=== PATIENT | female | born 1955 | race Caucasian/White ===

== ENCOUNTER 2017-04-05 09:27 | Day surgery (SDC) | payer OTHER ==
[2017-04-05] MEDS ORDERED: LACTATED RINGERS 1,000 ML IV ONE ×2 (09:56→12:08)
[2017-04-05] MEDS ORDERED: fentaNYL 100 MCG/2 ML VIAL IVP ONE (11:27)
[2017-04-05] MEDS ORDERED: MIDAZOLAM 2 MG/2 ML VIAL IVP ONE (11:27)
[2017-04-05] MEDS ORDERED: ONDANSETRON 4 MG/2 ML VIAL ONE (12:39)
[2017-04-05 14:28] VITALS: BP 128/72
== END 2017-04-05 09:28 | disposition home or self-care (01) ==
LOC: SDS 09:27
PROVIDERS: ATTEND Surgery
PROC: 0DBN8ZX Excision of Sigmoid Colon, Via Natural or Artificial Opening Endoscopic, Diagnostic (ICD-10-PCS; principal; 2017-04-05 10:45)
DX: K63.89 Other specified diseases of intestine (principal); K64.8 Other hemorrhoids
CPT/HCPCS: 45380; J7120

== ENCOUNTER 2017-08-05 04:53 | Emergency (ER) | payer OTHER ==
[2017-08-05 05:08] VITALS: BP 139/66
--- NOTE | 2017-08-05 05:36 | ED Physician Documentation ---
History of Present Illness - Stated complaint Stated Complaint: POST OP PAIN - Chief complaint Chief Complaint: General - History obtained from History obtained from: Patient - History of Present Illness Timing: How many days ago (4-5 days) Pain level now: 8 Improved by: no ameliorating factors Worsened by: no exacerbating factors - Additonal information Additional information: c/o painful hemorrhoids for past several days. patient underwent hysterectomy and resection of tumors from colon and rectum 06/13 at [facility]. 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 08/05/17 Hydrocortisone/Pramoxine 1 applic RC TID #1 foam 08/05/17 [Proctofoam-Hc Foam] oxyCODONE [Roxicodone] 5 mg PO Q4-6H PRN #14 tablet 08/05/17 - Allergies Allergies/Adverse Reactions: Allergies Allergy/AdvReac Type Severity Reaction Status Date / Time No Known Drug Allergies Allergy Verified 08/05/17 05:11 - Social History Does the pt smoke?: No Smoking Status: Never smoker Does the pt drink ETOH?: Yes Does the pt have substance abuse?: No - Immunizations Immunizations are current?: Yes - POLST Patient has POLST: No PD ED PE NORMAL - Vitals Vital signs reviewed: Yes - General General: Alert and oriented X 3, Well developed/nourished, Other (appears to be in obvious painful distress) - Abdomen Abdomen: Soft, Non tender PD ED PE EXPANDED - Rectal Rectal: Hemorrhoid (large, firm, right-sided tender hemorrhoid), [employer] present ([employer]) Results - Vitals Vitals: Oxygen O2 Source Room air Procedures - General procedure General procedure: after prep with chlorhexadine, 1% lidocaine with epinephrine was locally injected into hemorrhoid (1-2 cc total) with excellent and rapid anesthesia. small incision made with #11 blade scalpel, amkilo. blood returned although no clot retrieved. I then applied steady, constant pressure and was able to partially reduce the hemorrhoid. she continued to have good pain relief during remainder of ED stay and was discharged with oxycodone rx and percocet take-home , instructed to return if worse and to follow-up with her doctor next available appointment PD MEDICAL DECISION MAKING - ED course Complexity details: re-evaluated patient, considered differential, d/w patient Departure - Departure Disposition: Home, Self Care Clinical Impression: Hemorrhoid Condition: Good Instructions: ED Hemorrhoids Follow-Up: CATA METZ, [Primary Care Provider] - Prescriptions: Dibucaine 1 film TP TID PRN #1 oint...g. PRN Reason: Pain Hydrocortisone/Pramoxine [Proctofoam-Hc Foam] 1 applic RC TID #1 foam oxyCODONE [Roxicodone] 5 mg PO Q4-6H PRN #14 tablet PRN Reason: Pain Discharge Date/Time: 08/05/17 06:45
[2017-08-05] MEDS ORDERED: BUFFERED LIDOCAINE 10 ML SYRINGE SUBQ STA (05:45)
[2017-08-05] MEDS ORDERED: LIDOCAINE 1%-EPI 1:100000 20 ML MDV SUBQ STA (05:51)
[2017-08-05] MEDS ORDERED: LIDOCAINE 1%-EPI 1:100000 30 ML MDV ONE (06:02)
[2017-08-05] MEDS ORDERED: oxyCODONE/ACET 5/325 Prepack 4 PO STA (06:24)
== END 2017-08-05 06:45 | disposition home or self-care (01) ==
LOC: ED 04:53
DX: K64.9 Unspecified hemorrhoids (principal); G89.18 Other acute postprocedural pain; I10 Essential (primary) hypertension; K21.9 Gastro-esophageal reflux disease without esophagitis; Z98.84 Bariatric surgery status
CPT/HCPCS: 46083; 99283

== ENCOUNTER 2017-08-10 06:09 | Day surgery (SDC) | payer OTHER ==
[2017-08-10] MEDS ORDERED: LACTATED RINGERS 1,000 ML IV ONE (06:59)
[2017-08-10] MEDS ORDERED: BUPIVACAINE 0.5%-EPI 1:200000 PF 10 ML VIAL ONE (07:43)
[2017-08-10] MEDS ORDERED: ROCURONIUM 50 MG/5 ML VIAL IVP ONE (08:15)
[2017-08-10] MEDS ORDERED: fentaNYL 100 MCG/2 ML VIAL IVP ONE (08:15)
[2017-08-10] MEDS ORDERED: PROPOFOL 200 MG/20 ML VIAL IVP ONE (08:15)
[2017-08-10] MEDS ORDERED: SUCCINYLCHOLINE 200 MG/10 ML VIAL IVP ONE (08:15)
[2017-08-10] MEDS ORDERED: ePHEDrine 50 MG/ML VIAL IVP ONE (08:15)
[2017-08-10] MEDS ORDERED: MIDAZOLAM 2 MG/2 ML VIAL IVP ONE (08:15)
[2017-08-10] MEDS ORDERED: LIDOCAINE-MPF 2% 5 ML VIAL IM ONE (08:15)
--- NOTE | 2017-08-10 08:32 | OPERATIVE REPORT ---
Operative Report - General Procedure Date: 08/10/17 Planned Procedure: Excisional external hemorrhoidectomy Pre-Op Diagnosis: Thrombosed external hemorrhoid Procedure Performed: Excisional external hemorrhoidectomy Post Op Diagnosis: Thrombosed external hemorrhoid - Procedure Note Primary Surgeon: Hipolito Mast MD Anesthesia Provider: Miguel Patino CRNA Anesthesia Technique: General ET tube, Local (30 mL of 1/2% marcaine with epinephrine) IV Fluids (mL): 200 Estimated Blood Loss (mL): 1 Complications: None. - Other Other Information/Narrative: OPERATIVE DESCRIPTION/REPORT: After verbal and written informed consent was obtained detailing the risks of infection, bleeding requiring transfusion with its risks, transient incontinence , nerve injury, and , and after I met with the patient confirming the surgery and the site of the surgery, the patient was brought to the operative suite and placed supine on the operating table. Great care was taken to avoid pressure points to prevent pressure necrosis or nerve injury. Monitoring devices were applied along with TEDs and pneumatic compressive stockings (to prevent DVT). The patient received preoperative antibiotics for surgical prophylaxis. Miguel Patino sedated and anesthetized the patient for the entire procedure. The patient was then placed prone taking care to pad all extremities and avoid any pressure spots. The patient was prepped and draped in the usual sterile manner. A "time in" then confirmed that the patient was identified with 3 identifiers (name, date and medical record number), the history and physical was in the chart, the signed consent confirming the procedure was in the chart, the patient was in the correct position, the aforementioned prophylactic measures were in place or given, we had the correct personnel and equipment to complete the procedure and that anesthesia, surgery and nursing were given an opportunity to express any concerns. With the agreement of everyone in the room, we proceeded with the operation. It was clear that the hemorrhoidal complex on the patient's right from approximately 1:00 to 5:00 was the symptomatic complex. The skin was discolored blue and was firm. Using serial application of the harmonic scalpel the hemorrhoidal complex was excised unroofing the thrombosis. There were several areas of smaller thrombosis within this and these were similarly unroofed. The clots were all removed. There was essentially no bleeding. The base of the hemorrhoid excision and around the hemorrhoid excision was injected using half percent Marcaine with epinephrine for long-term pain control. At this point a time out was performed that confirmed that all the counts were correct, the procedure that was performed, the blood loss, the IV fluids administered, and the patients condition. All surgical counts were reported as correct. A dressing was applied. Having tolerated the procedure well, the patient was subsequently taken to short stay in good and stable condition.
[2017-08-10] MEDS ORDERED: ONDANSETRON 4 MG/2 ML VIAL ONE (08:54)
[2017-08-10 10:09] VITALS: BP 126/66
== END 2017-08-10 06:10 | disposition home or self-care (01) ==
LOC: SDS 06:09
PROVIDERS: ATTEND Surgery
PROC: 06BY0ZC Excision of Hemorrhoidal Plexus, Open Approach (ICD-10-PCS; principal; 2017-08-10 07:30)
DX: K64.5 Perianal venous thrombosis (principal); F32.9 Major depressive disorder, single episode, unspecified
CPT/HCPCS: 46320; J0330; J7120; 88304

== ENCOUNTER 2019-03-18 08:55 | Outpatient (CLI) | payer MEDICARE, OTHER ==
--- NOTE | 2019-03-18 10:19 | Mammography Report ---
Reason: ROUTINE MAMMO Procedure Date: 03/18/2019 Accession Number: [id number] / [id number] Procedure: MGN - Screening Mammo Dig Bilat CPT Code: Final Report FULL RESULT: EXAM: Screening Mammo Dig Bilat DATE: 03/18/2019 10:01 AM CLINICAL HISTORY: The patient is an asymmetric 64-year-old female with no personal or family history of breast cancer. TECHNIQUE: (B) - Bilateral CC and MLO views were obtained. COMPARISON: 07/28/2015, 09/08/2009 PARENCHYMAL PATTERN: (A) - The breasts demonstrate scattered fibroglandular densities bilaterally. FINDINGS: Scattered bilateral dermal calcifications again noted. The pattern of asymmetry is stable given positional differences. There are no suspicious masses, calcifications, or areas of distortion. IMPRESSION: Benign findings. BI-RADS category 2. RECOMMENDATION: (ANNUAL) - Recommend routine annual screening mammography. BI-RADS CATEGORY: (2) - Benign Findings. STANDARD QUALIFYING STATEMENTS: 1. This examination was not reviewed with the aid of Computer-Aided Detection (CAD). 2. A negative or benign imaging report should not preclude biopsy if clinically suspicious findings are present. 3. Dense breasts may obscure an underlying neoplasm. 4. This examination was reviewed the aid of 3D breast imaging (tomosynthesis).
== END 2019-03-18 08:56 | disposition home or self-care (01) ==
LOC: DI.N 08:55
PROVIDERS: ATTEND Family Medicine
DX: Z12.31 Encounter for screening mammogram for malignant neoplasm of breast (principal)
CPT/HCPCS: 77067

== ENCOUNTER 2019-12-08 08:00 | Outpatient (CLI) | payer MEDICARE, OTHER | END 2019-12-08 23:59 | disposition home or self-care (01) | LOC: LAB.R 08:00 | PROVIDERS: ATTEND Physician Assistant | DX: Z20.828 Contact with and (suspected) exposure to other viral communicable diseases (principal); B97.89 Other viral agents as the cause of diseases classified elsewhere | CPT/HCPCS: 87275; 87276; U0004 ==

== ENCOUNTER 2019-12-11 08:00 | Outpatient (CLI) | payer MEDICARE, OTHER | END 2019-12-11 23:59 | disposition home or self-care (01) | LOC: LAB.R 08:00 | PROVIDERS: ATTEND Family Medicine | DX: R30.0 Dysuria (principal) | CPT/HCPCS: 87086; 87181 ==

== ENCOUNTER 2019-12-11 11:21 | Outpatient (CLI) | payer MEDICARE, OTHER ==
--- NOTE | 2019-12-11 11:23 | XRAY Report ---
PROCEDURE: Chest 2 View X-Ray INDICATIONS: COUGH TECHNIQUE: 2 view(s) of the chest. COMPARISON: None. FINDINGS: Surgical changes and devices: None. Lungs and pleura: No pleural effusions or pneumothorax. Lungs are clear. Mediastinum: Mediastinal contours are normal. Heart size is normal. Bones and chest wall: No suspicious bony abnormalities. Soft tissues appear unremarkable. IMPRESSION: No acute cardiopulmonary pathology. Reviewed by: Caes Larsen MD on 12/11/2019 11:22 AM PDT Approved by: Case Larsen MD on 12/11/2019 11:22 AM PDT Station ID: [id number]
== END 2019-12-11 23:59 | disposition home or self-care (01) ==
LOC: DI.WCP 11:21
PROVIDERS: ATTEND Family Medicine
DX: R05 Cough (principal); R30.0 Dysuria
CPT/HCPCS: 71046; 87086; 87181

== ENCOUNTER 2020-07-31 08:44 | Outpatient (CLI) | payer MEDICARE, OTHER ==
[2020-07-31] MEDS ORDERED: IOPAMIDOL-300 100 ML VIAL ONE (08:49)
[2020-07-31] MEDS ORDERED: IOPAMIDOL-300 50 ML VIAL ONE (08:49)
[2020-07-31 09:14] LABS: CREATININE 0.7 mg/dL (0.4-1.0)
[2020-07-31] MEDS ORDERED: IOPAMIDOL-300 100 ML VIAL IVP ONE (10:17)
[2020-07-31] MEDS ORDERED: IOPAMIDOL-300 50 ML VIAL PO ONE (10:18)
--- NOTE | 2020-07-31 10:57 | CT Report ---
PROCEDURE: Abdomen/Pelvis W INDICATIONS: HERNIA CONTRAST: IV CONTRAST: Isovue 300 ml: 100 PO CONTRAST: Isovue 300 ml50 TECHNIQUE: After the administration of oral and nonionic IV contrast, 5 mm thick sections acquired from the diap hragms to the symphysis. 5 mm thick coronal and sagittal reformats were acquired. For radiation dos e reduction, the following was used: automated exposure control, adjustment of mA and/or kV accordin g to patient size. COMPARISON: 11/26/2017, 03-09, 01/06/2016 FINDINGS: Image quality: Excellent. ABDOMEN: Lung bases: Note is made of subpleural bleb formation. Heart size is normal. A small hiatal hernia i s incidentally noted. Solid organs: Liver and spleen are normal in size and enhancement. Diffuse fatty liver infiltration can be seen. Gallbladder has been removed Biliary system is non dilated. Pancreas enhances normal ly. No adrenal nodules. Kidneys demonstrate normal size and enhancement, without hydronephrosis. Peritoneum and bowel: A lap band can be seen. Partial right hemicolectomy change can be seen. Bowel l oops demonstrate normal wall thickness and caliber. No free fluid or air. There is a 4 mm right low er quadrant soft tissue nodule seen, as on series 3 image 31, which is decreased in size compared to 2018. Nodes and vessels: No retroperitoneal or mesenteric adenopathy by size criteria. Aorta and inferior vena cava are normal in size. Miscellaneous: There is a fat-containing epigastric hernia present. PELVIS: Genitourinary: Bladder wall thickness is normal. This patient is status post hysterectomy. No adnex al masses can be seen. Miscellaneous: No inguinal hernias or adenopathy. Bones: No suspicious bony lesions. No vertebral body compression fractures. Focal L5-S1 degenerati ve change is seen. Milder degenerative changes are seen elsewhere. IMPRESSION: There is a fat-containing epigastric hernia seen. There is a 4 mm right lower quadrant nodule seen, which is decreased in size compared to 2018. Prior postoperative change, with right partial hemicolectomy. Incidental note is made of: Subpleural bleb formation Small hiatal hernia Lap band Cholecystectomy clips Fatty liver infiltration Hysterectomy Focal L5-S1 degenerative change Reviewed by: Alessandro Nur MD on 07/31/2020 9:56 AM AKDT Approved by: Alessandro Nur MD on 07/31/2020 9:56 AM DONELL Station ID: [id number]
== END 2020-07-31 08:45 | disposition home or self-care (01) ==
LOC: LAB 08:44
PROVIDERS: ATTEND Surgery
DX: K43.2 Incisional hernia without obstruction or gangrene (principal); R19.03 Right lower quadrant abdominal swelling, mass and lump
CPT/HCPCS: 36415; 74177; 82565; Q9967

== ENCOUNTER 2020-10-29 07:55 | Inpatient (IN) | payer MEDICARE, OTHER ==
[~2020-10-29 07:55] MED LIST: ceFAZolin 2 GM/50 ML 2 GM/50 ML BAG IV ONE
[2020-10-29] MEDS ORDERED: BUPIVACAINE 0.5%-EPI 1:200000 PF 30 ML VIAL ONE (08:10)
[2020-10-29] MEDS ORDERED: LIDOCAINE-MPF 1% 30 ML VIAL ONE (08:10)
--- NOTE | 2020-10-29 08:31 | ANESTHESIA ---
Pre-Anesthesia VS, & Labs - Diagnosis incisional hernia, lap band - Procedure incisional hernia repair, removal of gastric lap band and accessories Height: 5 ft 5.5 in Weight (kg): 99 kg Body Mass Index: 35.7 BMI Classification: Obese - NPO >8 hours - Is Patient ?: No Home Medications and Allergies Home Medications: Ambulatory Orders Octreotide Acetate 100 mcg IJ ONCE 10/21/20 Octreotide Acetate 100 mcg IJ ONCE 10/21/20 Allergies/Adverse Reactions: Allergies Allergy/AdvReac Type Severity Reaction Status Date / Time metformin [From Glucophage] AdvReac Nausea Verified 05/18/20 10:10 Anes History & Medical History - Anesthetic History Anesthesia Complications: reports: Difficult airway (patient was told she was for hysterectomy, does not recall intubation) - Medical History Cardiovascular: reports: None Pulmonary: reports: None Gastrointestinal: reports: Chronic diarrhea Urinary: reports: None Musculoskeletal: reports: None Endocrine/Autoimmune: reports: Other (Carcinoid tumor) Blood Disorders: reports: None Skin: reports: Eczema Smoking Status: Never smoker History of Cancer?: Yes - Surgical History General: reports: Bowel surgery, Gastric surgery, Colonoscopy, Other Eyes Ears Nose Throat (EENT): reports: Tonsil/Adenoidectomy Gynecologic: reports: Tubal ligation, Hysterectomy, Oophrectomy Orthopedic: reports: Other Exam General: Alert Dental: WNL Mouth Openin Fingerbreadth Mallampati classification: II Thyromental Distance: 4-6 cm Respiratory: Lungs clear Cardiovascular: Regular rate Plan Anesthesia Type: General Consent for Procedure(s) Verified and Reviewed: Yes Code Status: Attempt Resuscitation ASA classification: 2-Mild systemic disease Is this case an emergency?: No
[2020-10-29] MEDS ORDERED: fentaNYL 100 MCG/2 ML VIAL ONE ×2 (08:39→10:17)
[2020-10-29] MEDS ORDERED: LIDOCAINE-MPF 2% 5 ML VIAL ONE (08:39)
[2020-10-29] MEDS ORDERED: PROPOFOL 200 MG/20 ML VIAL IVP ONE ×4 (08:39→12:50)
[2020-10-29] MEDS ORDERED: MIDAZOLAM 2 MG/2 ML VIAL ONE (08:39)
[2020-10-29] MEDS ORDERED: ROCURONIUM 50 MG/5 ML VIAL ONE ×3 (08:40→10:16)
[2020-10-29] MEDS ORDERED: LACTATED RINGERS 1,000 ML IV ONE ×2 (08:44→13:39)
[2020-10-29] MEDS ORDERED: ATROPINE ABBOJECT 1 MG/10 ML SYRINGE IVP PRN (08:56)
[2020-10-29] MEDS ORDERED: ePHEDrine 50 MG/ML VIAL IVP PRN (08:56)
[2020-10-29] MEDS ORDERED: MORPHINE 2 MG/ML CARPUJECT IVP PRN (08:56)
[2020-10-29] MEDS ORDERED: NALOXONE 0.4 MG/ML VIAL IVP PRN (08:56)
[2020-10-29] MEDS ORDERED: METOCLOPRAMIDE 10 MG/2 ML VIAL IVP PRN (08:56)
[2020-10-29] MEDS ORDERED: ONDANSETRON 4 MG/2 ML VIAL IVP PRN ×2 (08:56→13:38)
[2020-10-29] MEDS ORDERED: fentaNYL 100 MCG/2 ML VIAL IVP PRN (08:56)
[2020-10-29] MEDS ORDERED: LACTATED RINGERS 1,000 ML IV SCH (09:00)
[2020-10-29] MEDS ORDERED: ROPIVACAINE 0.5% PF 20 ML AMPULE ONE (09:25)
[2020-10-29] MEDS ORDERED: GLYCOPYRROLATE 1 MG/5 ML VIAL ONE (09:34)
[2020-10-29] MEDS ORDERED: ePHEDrine 50 MG/ML VIAL IVP ONE (09:37)
[2020-10-29] MEDS ORDERED: PHENYLEPHRINE 10 MG/ML VIAL ONE (09:39)
[2020-10-29] MEDS ORDERED: DEXAMETHASONE 4 MG/ML VIAL ONE (09:54)
[2020-10-29] MEDS ORDERED: ONDANSETRON 4 MG/2 ML VIAL ONE ×2 (09:54→14:23)
[2020-10-29] MEDS ORDERED: ACETAMINOPHEN 1,000 MG/100 ML 100 ML IV ONE (09:55)
[2020-10-29] MEDS ORDERED: BUPIVACAINE 0.5% PF 30 ML VIAL SUBQ ONE ×2 (10:26)
[2020-10-29] MEDS ORDERED: LIDOCAINE 1%-EPI 1:100000 20 ML MDV SUBQ ONE ×2 (10:28)
[2020-10-29] MEDS ORDERED: NEOSTIGMINE 1 MG/1 ML 10 ML MDV ONE (11:46)
[2020-10-29] MEDS ORDERED: SUGAMMADEX 200 MG/2 ML VIAL IVP ONE (12:01)
[2020-10-29] MEDS ORDERED: ceFAZolin 1 GM VIAL ONE (13:03)
--- NOTE | 2020-10-29 13:53 | OPERATIVE REPORT ---
Operative Report - General Admit Date: 10/30/20 Procedure Date: 10/29/20 Planned Procedure: 1. Diagnostic laparoscopy 2. Laparoscopic adhesiolysis 3. Laparoscopic assisted laparoscopic gastric band explantation 4. Complex laparoscopic assisted ventral hernia repair 5. Scar revision 6. Transversus abdominis plane block Pre-Op Diagnosis: Hx of laparotomy; Hx of incisional hernia; Hx of lap gastric band Procedure Performed: 1. Diagnostic laparoscopy 2. Laparoscopic adhesiolysis, extensive 3. Laparoscopic assisted laparoscopic gastric band explantation 4. Complex laparoscopic assisted ventral hernia repair 5. Scar revision 6. Transversus abdominis plane block 7. Extensive open adhesiolysis through mini laparotomy 8. Intraperitoneal onlay mesh 9. Cautery of hepatic adhesions Post Op Diagnosis: SAME; extensive adhesions (Hx of HIPEC); extensive gastric adhesions - Procedure Note Primary Surgeon: Len Secondary Surgeon: ADELINA Anesthesia Provider: Tyshawn Anesthesia Technique: General ET tube, Regional block Pathology: 1. Laparoscopic gastric band complete including access port 2. Gastric band capsule 3. Scar status post revision 4. Port capsule Estimated Blood Loss (mL): 50 Drain/Tube Type: Jacques drain Indications: See EMR Findings: See Dictation Complications: NONE - Other Other Information/Narrative: PROCEDURES PERFORMED: 1. Diagnostic laparoscopy 2. Laparoscopic adhesiolysis, extensive 3. Laparoscopic assisted laparoscopic gastric band explantation 4. Complex laparoscopic assisted ventral hernia repair 5. Scar revision 6. Transversus abdominis plane block 7. Extensive open adhesiolysis through mini laparotomy 8. Intraperitoneal onlay mesh 9. Cautery of hepatic adhesions Findings: 1. Dense Adhesions. Large incisional hernia. Good apposition of mesh. 2. Large incisional herniaperformed for primary repair after dissection and IPOM performed using echo ventral light ST implant 3. No inadvertent injury, hemostatic, ultimately successful repair 4. Trochars were as follows: A. Left upper quadrant at the patient's historic lap band port site B. Right upper abdominal trocar 5 mm D. Left lower quadrant 5 mm E. Right lower quadrant 5 mm 5. Successful explantation of the patient's laparoscopic gastric band in spite of extensive planned abdominal, pain intestinal, and foregut adhesions especially to the patient's left lobe of the liver. Procedure Report: Patient was taken to the operating room placed supine on the operating table. Informed consent was already obtained. Patient was induced for general endotracheal anesthesia. Patient at this time was placed for Ocampo catheter. Patient was offloaded and padded. Arms were tucked bilaterally. Patient was prepped and draped in the usual sterile fashion. Timeout was called and agreed to by all in the room. A planned access point was incised along the patient's historic midline supraumbilical scar. Planned scar revision was also anticipated and we performed excision of the scar during this portion of the operative intervention. After passing this scar off for permanent pathology, we proceeded to take down the subcutaneous fat cautiously with electrocautery. Once we approached the hernia sac we proceeded exclusively with sharp dissection to avoid any inadvertent hollow viscus injury in this patient with known large supraumbilical ventral hernia. The patient had had metastatic carcinoid for which she underwent debulking procedure as well as heated intraperitoneal chemotherapy (AKA HIPEC). It was anticipated that the patient would have extensive adhesions. Moreover the patient wished to have her lap band explanted which was another intervention that would only be further complicated by her complex surgical h istory. Reached the incisional/ventral hernia and carefully divided this sharply and proceeded with adhesiolysis of the underlying contents both the omentum as well as the bowel. As we proceeded to achieve adhesiolysis we noted that this case would require lengthy adhesiolysis both open and laparoscopic and thus opted to proceed as follows: 1. Adhesiolysis to avoid appropriate access (after already performing scar excision of the supraumbilical midline scar) 2. Laparoscopic adhesiolysis to afford access to the abdomen to achieve the appropriate exposure to proceed with the next step 3. Explantation of the patient's laparoscopic gastric band 4. Complex laparoscopic assisted ventral hernia repair with primary closure 5. Other indicated procedures including transversus abdominis block To achieve the initial above listed goals, we plan to perform this using a GelPort wound protector both for exposure initially and thereafter to assist with achieving pneumoperitoneum for subsequent adhesiolysis. Once the underlying abdominal contents were freed from the anterior abdominal wall, we proceeded with mini laparotomy through this approximately 10 to 12 cm incision incorporating the patient's known midline hernia which amounted to at least 1 hour of careful tedious sharp adhesiolysis using Metzenbaum scissors, gentle countertraction, to address all local anterior abdominal wall adhesions as well as accessible interloop adhesions. We thereafter able to press forward laparoscopically and placed the GelPort access device towards inserting the subsequent trochars for the balance of the patient's adhesiolysis and the subsequent portions of the patient's operative intervention. Abdominal cavity was entered without incident. We placed the Rosen trocar and insufflated the abdomen to 15 mmHg with no complication. Case began with adhesiolysis as follows: Trochars were sequentially placed towards affording appropriate abdominal access for laparoscopic and ultimately laparoscopic adhesiolysis and enterolysis. This was performed in such a way as to maximize exposure and minimize abdominal trauma. We clearly visualized, after appropriate and lengthy laparoscopic adhesiolysis, each trocar placement. Thereafter once appropriate and safe exposure was achieved without any inadvertent injuries or other complicating factors, we proceeded laparoscopically in such a way as to take down the patient's extensive intra- abdominal adhesions using sharp laparoscopic dissection, diligent electrocautery, and appropriate countertraction. Please note for multiple reasons as listed above under brief procedural findings, this patient was best suited to minimal access adhesiolysis towards avoiding open intervention, reducing the associated risks thereof, maximizing recovery, minimizing postoperative morbidity and associated stigmata, and enhancing the patient's convalescence towards assuring safe and expeditious ushering of patient into the next step of therapeutic intervention which was crucial in overall plan of care. This proceeded without any untoward complications, and without any inadvertent injuries or other adverse effect events. Trochars were as follows: A. Left upper quadrant at the patient's historic lap band port site B. Right upper abdominal trocar 5 mm D. Left lower quadrant 5 mm E. Right lower quadrant 5 mm With this having been achieved we proceeded to perform mckeon abdominal, mckeon intestinal adhesiolysis in this patient who had had again debulking for metastatic abdominal carcinoid as well as HIPEC. This laparoscopic adhesiolysis took an additional 1 hour. Ultimately we were able to expose the abdomen to the point that we could proceed with explantation of the laparoscopic gastric lap band. The patient was placed in reverse Trendelenburg with left side up. Through the above listed ports were able to carefully follow the insufflation line from the abdominal port site to the patient's laparoscopic gastric band. There were dense adhesions around this from the patient's multiple surgical interventions. This required careful diligent dissection notably sharp, cautious electrocautery, and laparoscopic LigaSure as well. There was a dense fibrous coat surrounding this in the way of a capsule this was all adjacent to the lateral aspect of the left lobe of the liver. This took an exceedingly long amount of time with cautious intervention which otherwise would have necessitated a partial "chevron" for open access which would have defeated the purpose of the patient's hernia. Thus we proceeded carefully and cautiously ultimately were able to explant the band without any complication which had already been desufflated prior to our intervention.. There was no concern for any issues in the area was submerged under saline with appropriate positioning in the stomach at this point was insufflated with air with an out any extravasation of bubbles on saline immersion. Ultimately we removed the port from the abdomen at the conclusion of this case during final closure see below. The LAP-BAND was explanted through the midline GelPort without any complication and sent along with the capsule for permanent pathology. At this time we opted to perform the complex ventral hernia repair. There was an area of persistent oozing from the adhesions to the left lobe of the liver from where the lap band and its capsule had been adhesed. This was addressed with electrocautery without any complication. Hemostatic. We proceeded to choose a large mesh ventral light ST echo system from [employer]. This would appropriately cover the entirety of the defect which would plan to close primarily as well. The mesh was thereafter placed and its traction suture clamped. To reiterate, the defect was very large greater than 10cm and was closed vertically as listed elsewhere. Prior to definitive closure and mesh was chosen from the [employer] family of products ST with Seprafilm covering/coating echo ventral light synthetic. This oval mesh was rolled and inserted into the hernia defect prior to definitive closure. Scaffold suture secured outside on a Calli clamp. We proceeded to remove the GelPort and closed the midline wound after developing skin flaps and performing a partial component separation. Fascia was identified and appropriately liberated from chronic scar. We performed this bidirectional closure with loop PDS without any complication. The abdomen was then insufflated to 15 mmHg pressure through Rosen umbilical trocar now placed in the left upper quadrant. Trocars were already placed as follows for above laparoscopic adhesiolysis: A. Left upper quadrant at the patient's historic lap band port site B. Right upper abdominal trocar 5 mm D. Left lower quadrant 5 mm E. Right lower quadrant 5 mm The mesh was straightened and flattened in the abdominal cavity up against the abdominal wall. There was good apposition after the scaffold suture was pulled taut against the anterior abdominal wall of the mesh which was organ oriented appropriately with the coding facing intra-abdominal. At this time while maintaining traction on this scaffold suture from the ECHO system we proceeded to approximate the mesh to the anterior abdominal wall. Please note we attempted to proceed with a smaller mesh over the umbilicus prophylactically infraumbilical however in spite of adhesiolysis it did not appear that we would had apposition of the mesh and the risk of complication with mesh on mesh would be prohibitive thus we proceeded with a single device to address the single area of concern. At this time we proceeded to affix the mesh using approximate absorbable tacks which was facilitated using the 4 trochars in the left and right upper and lower quadrants. This was performed sequentially through all 4 trocars in a 360- degree fashion. Several permanent tacks were also used given the large size of this device. The mesh was examined once again, and the mesh was documented by photography showing that it was clearly lying flat anteriorly against the abdominal wall. Pictures were taken of the mesh. The abdomen was then checked for hemostasis. Small bowel was run without any concern for any occult pathology especially given historic recurrent herniation. Omentum was mobilized over the bowel. The abdomen was irrigated and aspirated clear. The abdomen was desufflated. At this time we proceeded to remove the access port to the patient's historic lap band site. All sutures removed and this was sent for permanent pathology without any concern for any remnant device within the patient's abdomen. We thereafter reset elated and close this large trocar access site with a Jassi-Kam suture passer under direct laparoscopic vision. We thereafter desufflated the abdomen again and all remaining right upper and right lower quadrant trocars as well as the left lower quadrant trocar which were removed thereafter without any complication. All trocar sites were closed with subcuticular with Monocryl for local blocks with local anesthetic. We thereafter also proceeded with a cosmetic closure of the patient's supraumbilical incision with a subcuticular 4-0 Monocryl. All wounds were dressed with Dermabond. Present for the entirety of this operative intervention. Patient tolerated procedure well which was no complication. All counts for sponges, needles, and instrument were correct at the conclusion of the case. Patient was performed for a transversus abdominis plane block per anesthesia. It was anticipated that given the patient's dense adhesions and lengthy adhesiolysis she might possibly require transition to full admission for anticipated ileus. The patient was allowed to wake from anesthesia without difficulty. Please note that voice recognition software was used to transcribe this note and inadvertent errors might persist in spite of review and editing. I am obliged to you for your attention. I am thankful to you for allowing me to participate with you in this care of this patient.
--- NOTE | 2020-10-29 13:59 | PROVIDER PROGRESS NOTE ---
Progress Note BRIEF Operative Report - General Procedure Date: 10/29/20 Planned Procedure: 1. Diagnostic laparoscopy 2. Laparoscopic adhesiolysis 3. Laparoscopic assisted laparoscopic gastric band explantation 4. Complex laparoscopic assisted ventral hernia repair 5. Scar revision 6. Transversus abdominis plane block Pre-Op Diagnosis: Hx of laparotomy; Hx of incisional hernia; Hx of lap gastric band Procedure Performed: 1. Diagnostic laparoscopy 2. Laparoscopic adhesiolysis, extensive 3. Laparoscopic assisted laparoscopic gastric band explantation 4. Complex laparoscopic assisted ventral hernia repair 5. Scar revision 6. Transversus abdominis plane block 7. Extensive open adhesiolysis through mini laparotomy 8. Intraperitoneal onlay mesh 9. Cautery of hepatic adhesions Post Op Diagnosis: SAME; extensive adhesions (Hx of HIPEC); extensive gastric adhesions - Procedure Note Primary Surgeon: Len Secondary Surgeon: ADELINA Anesthesia Provider: Tyshawn Anesthesia Technique: General ET tube, Regional block Pathology: 1. Laparoscopic gastric band complete including access port 2. Gastric band capsule 3. Scar status post revision 4. Port capsule Estimated Blood Loss (mL): 50 Drain/Tube Type: Jacques drain Indications: See EMR Findings: See Dictation Complications: NONE
[2020-10-29] MEDS ORDERED: HYDROmorphone 0.5 MG/0.5 ML SYRINGE ONE (14:23)
[2020-10-29] MEDS: HYDROmorphone 0.5 MG/0.5 ML SYRINGE IVP PRN ×5 (14:25→16:26)
[2020-10-29] MEDS ORDERED: HYDROmorphone 1 MG/ML CARPUJECT ONE (14:38)
[2020-10-29] MEDS: D5NS W/20 MEQ KCL 1,000 ML IV SCH ×2 (15:23→23:07)
[2020-10-29] MEDS: PANTOPRAZOLE 40 MG TABLET PO SCH (16:22)
[2020-10-29] MEDS: KETOROLAC 30 MG/ML VIAL IVP SCH (18:06)
[2020-10-29] MEDS: methocarbamoL 500 MG TABLET PO SCH (18:06)
[2020-10-29] MEDS: METOCLOPRAMIDE 10 MG/2 ML VIAL IVP SCH (18:07)
[2020-10-29] MEDS: polyethylene glycoL 3350 17 GM PACKET PO SCH (21:47)
[2020-10-29] MEDS: DOCUSATE SODIUM 100 MG CAPSULE PO SCH (21:47)
[2020-10-30] MEDS: KETOROLAC 30 MG/ML VIAL IVP SCH ×4 (00:13→18:13)
[2020-10-30] MEDS: METOCLOPRAMIDE 10 MG/2 ML VIAL IVP SCH ×4 (00:13→18:12)
[2020-10-30] MEDS: methocarbamoL 500 MG TABLET PO SCH ×4 (00:13→18:12)
[2020-10-30] MEDS: D5NS W/20 MEQ KCL 1,000 ML IV SCH ×4 (06:06→21:23)
[2020-10-30] MEDS: PANTOPRAZOLE 40 MG TABLET PO SCH (06:12)
[2020-10-30] MEDS: DOCUSATE SODIUM 100 MG CAPSULE PO SCH ×2 (09:27→20:33)
[2020-10-30] MEDS: polyethylene glycoL 3350 17 GM PACKET PO SCH ×2 (09:27→20:33)
--- NOTE | 2020-10-30 15:19 | PROVIDER PROGRESS NOTE ---
Progress Note Subjective: Postoperative day #1 status post below listed procedure. Patient with significant pain. Ileus. No bowel function as of yet. Pre-Op Diagnosis: Hx of laparotomy; Hx of incisional hernia; Hx of lap gastric band Procedure Performed: 1. Diagnostic laparoscopy 2. Laparoscopic adhesiolysis, extensive 3. Laparoscopic assisted laparoscopic gastric band explantation 4. Complex laparoscopic assisted ventral hernia repair 5. Scar revision 6. Transversus abdominis plane block 7. Extensive open adhesiolysis through mini laparotomy 8. Intraperitoneal onlay mesh 9. Cautery of hepatic adhesions Post Op Diagnosis: SAME; extensive adhesions (Hx of HIPEC); extensive gastric adhesions Objective Afebrile hemodynamically acceptable General Appearance: positive: No acute distress Eyes Bilateral: positive: Normal inspection ENT: positive: ENT inspection nml Neck: positive: Nml inspection Respiratory: positive: Chest non-tender, No respiratory distress, Breath sounds nml. negative: Wheezes, Rales, Rhonchi Cardiovascular: positive: Regular rate & rhythm Abdomen: positive: No distention, Other. negative: Guarding, Rebound Extremities: positive: Non-tender, Full ROM, Nml appearance Neurologic/Psychiatric: positive: Oriented x3, CN's nml (2-12) Abdominal Exam: Inspection - Erythema none; Scars trocars well healed Auscultation -normoactive bowel sounds Palpation - Hernias none; Fluctuance none; Induration none; Scar N/A Dressings intact. LISSETT with serosanguineous output. Impression/Plan Postoperative day #1 status post above listed procedure. Ileus. Converted to inpatient. (1) GI - IVF, bowel regimen, advance diet as tolerated. GI ppx. Anticipate ileus. Opiate sparring analgesia. (2) SURGERY - maintain drain. Maintain abdominal binder. (3) Renal/Lytes - continue IVF. Renal indices within normal limits. (4) Respiratory - O2 as necessary. Continue IS. (5) Heme - Will continue with DVT ppx. H/H stable. (6) Cardiovascular - HD acceptable. (7) Neuro - Opiate sparring analgesia. Antispasmodics with Robaxin. Toradol. Neuropathic agents.
[2020-10-30] MEDS: oxyCODONE 5 MG TABLET PO PRN ×2 (16:01→20:33)
[2020-10-31] MEDS: methocarbamoL 500 MG TABLET PO SCH ×5 (01:01→23:42)
[2020-10-31] MEDS: oxyCODONE 5 MG TABLET PO PRN ×2 (01:43→21:32)
[2020-10-31] MEDS: METOCLOPRAMIDE 10 MG/2 ML VIAL IVP SCH (02:00)
[2020-10-31] MEDS: KETOROLAC 30 MG/ML VIAL IVP SCH ×4 (02:00→20:06)
[2020-10-31] MEDS ORDERED: ACETAMINOPHEN 1,000 MG/100 ML 100 ML IV SCH (06:00)
[2020-10-31] MEDS: D5NS W/20 MEQ KCL 1,000 ML IV SCH ×3 (06:21→21:59)
[2020-10-31 06:35] LABS: BASOPHILS % (AUTO) 0.1 %; EOSINOPHILS # (AUTO) 0.1 10^3/uL (0.0-0.7); EOSINOPHILS % (AUTO) 1.8 %; HCT - HEMATOCRIT 36.6 % (37.0-47.0); HGB - HEMOGLOBIN 11.8 g/dL (12.0-16.0); LYMPHOCYTES # (AUTO) 0.7 10^3/uL (1.5-3.5); LYMPHOCYTES % (AUTO) 9.3 %; MEAN CORPUSCULAR HEMOGLOBIN 32.2 pg (27.0-31.0); MEAN CORPUSCULAR HGB CONC 32.2 g/dL (32.0-36.0); MEAN CORPUSCULAR VOLUME 99.7 fL (81.0-99.0); MEAN PLATELET VOLUME 9.9 fL (7.9-10.8); MONOCYTES # (AUTO) 0.3 10^3/uL (0.0-1.0); MONOCYTES % (AUTO) 4.8 %; NEUTROPHILS % (AUTO) 83.7 %; PLT - PLATELET COUNT 120 10^3/uL (130-450); RED BLOOD COUNT 3.67 10^6/uL (4.20-5.40); RED CELL DISTRIBUTION WIDTH 13.8 % (12.0-15.0); WHITE BLOOD COUNT 7.1 x10^3/uL (4.8-10.8)
[2020-10-31] MEDS: PANTOPRAZOLE 40 MG TABLET PO SCH (06:43)
[2020-10-31 06:51] LABS: ALBUMIN 3.8 g/dL (3.2-5.5); ALBUMIN/GLOBULIN RATIO 1.5 (1.0-2.2); BILIRUBIN,TOTAL 1.9 mg/dL (0.2-1.0); CALCIUM 8.4 mg/dL (8.5-10.3); CREATININE 0.7 mg/dL (0.4-1.0); POTASSIUM 3.8 mmol/L (3.5-5.0); TOTAL PROTEIN 6.3 g/dL (6.7-8.2)
[2020-10-31] MEDS ORDERED: METOCLOPRAMIDE 10 MG/2 ML VIAL IVP SCH (08:00)
--- NOTE | 2020-10-31 08:47 | PHARMACY PROGRESS NOTE ---
- Best Possible Medication History Admit Date and Time: 10/30/20 1518 Processed by: Nursing Medication History completed: Yes Patient Interview: Completed As the person ultimately responsible for medication therapy, providers are able to order a medication from an existing home medication list in [facility] via the "Reconcile Routine" prior to Confirmation of that medication by computer support specialist instructor. Such practice is discouraged except when the physician, in their clinical judg ment, deems that a medical need exists for a medication without regard to previous use.
--- NOTE | 2020-10-31 09:39 | ANESTHESIA POST OP EVALUATION ---
Anesthesia Post Eval - Post Anesthesia Eval Vitals: Last Vital Signs Temp 37 C 10/31/20 04:56 Pulse 77 10/31/20 04:56 Resp 16 10/31/20 04:56 BP 143/63 H 10/31/20 04:56 Pulse Ox 94 10/31/20 04:56 CV Function Including HR & BP: Stable Pain Control: Satisfactory Nausea & Vomiting: Negative Mental Status: Baseline Respiratory Status: Airway Patent Hydration Status: Satisfactory Anesthesia Complications: None
[2020-10-31] MEDS: DOCUSATE SODIUM 100 MG CAPSULE PO SCH ×2 (10:36→20:07)
[2020-10-31] MEDS: HEPARIN 5,000 UNIT/ML VIAL SUBQ SCH ×2 (10:37→21:33)
[2020-10-31] MEDS: METOCLOPRAMIDE 10 MG TABLET PO SCH ×3 (10:41→23:42)
[2020-10-31] MEDS: polyethylene glycoL 3350 17 GM PACKET PO SCH ×2 (10:42→20:07)
[2020-10-31] MEDS: ACETAMINOPHEN 500 MG TABLET PO SCH ×2 (13:01→20:06)
[2020-11-01] MEDS: KETOROLAC 30 MG/ML VIAL IVP SCH ×3 (02:05→14:11)
[2020-11-01] MEDS: ACETAMINOPHEN 500 MG TABLET PO SCH ×2 (02:59→09:54)
[2020-11-01] MEDS: PANTOPRAZOLE 40 MG TABLET PO SCH (05:31)
[2020-11-01] MEDS: METOCLOPRAMIDE 10 MG TABLET PO SCH ×2 (05:31→12:15)
[2020-11-01] MEDS: methocarbamoL 500 MG TABLET PO SCH ×2 (05:31→12:15)
[2020-11-01] MEDS: D5NS W/20 MEQ KCL 1,000 ML IV SCH (05:32)
[2020-11-01 07:09] LABS: ALBUMIN 3.6 g/dL (3.2-5.5); ALBUMIN/GLOBULIN RATIO 1.4 (1.0-2.2); BILIRUBIN,TOTAL 1.5 mg/dL (0.2-1.0); CALCIUM 8.5 mg/dL (8.5-10.3); CREATININE 0.6 mg/dL (0.4-1.0); POTASSIUM 3.6 mmol/L (3.5-5.0); TOTAL PROTEIN 6.1 g/dL (6.7-8.2)
[2020-11-01 07:22] LABS: BASOPHILS % (AUTO) 0.3 %; EOSINOPHILS # (AUTO) 0.2 10^3/uL (0.0-0.7); EOSINOPHILS % (AUTO) 3.9 %; HCT - HEMATOCRIT 36.6 % (37.0-47.0); HGB - HEMOGLOBIN 11.9 g/dL (12.0-16.0); LYMPHOCYTES # (AUTO) 0.5 10^3/uL (1.5-3.5); LYMPHOCYTES % (AUTO) 13.9 %; MEAN CORPUSCULAR HEMOGLOBIN 32.2 pg (27.0-31.0); MEAN CORPUSCULAR HGB CONC 32.5 g/dL (32.0-36.0); MEAN CORPUSCULAR VOLUME 99.2 fL (81.0-99.0); MEAN PLATELET VOLUME 9.8 fL (7.9-10.8); MONOCYTES # (AUTO) 0.3 10^3/uL (0.0-1.0); MONOCYTES % (AUTO) 8.1 %; NEUTROPHILS # (AUTO) 2.8 10^3/uL (1.5-6.6); NEUTROPHILS % (AUTO) 73.3 %; PLT - PLATELET COUNT 105 10^3/uL (130-450); RED BLOOD COUNT 3.69 10^6/uL (4.20-5.40); RED CELL DISTRIBUTION WIDTH 13.3 % (12.0-15.0); WHITE BLOOD COUNT 3.8 x10^3/uL (4.8-10.8)
[2020-11-01] MEDS: polyethylene glycoL 3350 17 GM PACKET PO SCH (09:48)
[2020-11-01] MEDS: DOCUSATE SODIUM 100 MG CAPSULE PO SCH (09:48)
[2020-11-01] MEDS: HEPARIN 5,000 UNIT/ML VIAL SUBQ SCH (09:49)
--- NOTE | 2020-11-01 11:45 | PROVIDER PROGRESS NOTE ---
Progress Note Subjective: Postoperative day #2 status post below listed procedure. Patient with significant pain. Ileus. No bowel function as of yet. Pre-Op Diagnosis: Hx of laparotomy; Hx of incisional hernia; Hx of lap gastric band Procedure Performed: 1. Diagnostic laparoscopy 2. Laparoscopic adhesiolysis, extensive 3. Laparoscopic assisted laparoscopic gastric band explantation 4. Complex laparoscopic assisted ventral hernia repair 5. Scar revision 6. Transversus abdominis plane block 7. Extensive open adhesiolysis through mini laparotomy 8. Intraperitoneal onlay mesh 9. Cautery of hepatic adhesions Post Op Diagnosis: SAME; extensive adhesions (Hx of HIPEC); extensive gastric adhesions Objective Afebrile hemodynamically acceptable General Appearance: positive: No acute distress Eyes Bilateral: positive: Normal inspection ENT: positive: ENT inspection nml Neck: positive: Nml inspection Respiratory: positive: Chest non-tender, No respiratory distress, Breath sounds nml. negative: Wheezes, Rales, Rhonchi Cardiovascular: positive: Regular rate & rhythm Abdomen: positive: No distention, Other. negative: Guarding, Rebound Extremities: positive: Non-tender, Full ROM, Nml appearance Neurologic/Psychiatric: positive: Oriented x3, CN's nml (2-12) Abdominal Exam: Inspection - Erythema none; Scars trocars well healed Auscultation -normoactive bowel sounds Palpation - Hernias none; Fluctuance none; Induration none; Scar N/A Dressings intact. LISSETT with serosanguineous output. Impression/Plan Postoperative day #2 status post above listed procedure. Ileus. Converted to inpatient. (1) GI - IVF, bowel regimen, advance diet as tolerated. GI ppx. Anticipate ileus. Opiate sparring analgesia. (2) SURGERY - maintain drain. Maintain abdominal binder. (3) Renal/Lytes - continue IVF. Renal indices within normal limits. (4) Respiratory - O2 as necessary. Continue IS. (5) Heme - Will continue with DVT ppx. H/H stable. (6) Cardiovascular - HD acceptable. (7) Neuro - Opiate sparring analgesia. Antispasmodics with Robaxin. Toradol. Neuropathic agents.
[2020-11-01] MEDS: oxyCODONE 5 MG TABLET PO PRN (14:14)
[2020-11-01] MEDS ORDERED: ACETAMINOPHEN 500 MG TABLET PO SCH (16:00)
--- NOTE | 2020-11-01 17:29 | Discharge Plan ---
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 Stairs are allowed, no strenuous/exertional activities. 5-10lbs weight carrying limit (i.e. gallon of milk) If provided, abdominal binder while out of bed and while ambulating. Call or proceed to clinic/ER for fevers, severe pain, nausea, vomiting, i nability to pass flatus/stool, bleeding, wound redness/discharge, weakness, excessively loose stool/diarrhea, or for any other reasonably worrisome symptom or concern. Soft diet, no raw vegetables, avoid high fiber foods. Colace 100mg by mouth twice to three times daily while taking narcotic pain medication. If no bowel movement in 24-48hr, may take 17g Miralax in 8oz water twice daily until bowel movement. May shower, no submersive bathing. Follow up in clinic in 2-4 weeks for wound check and staple removal. No driving while taking narcotic pain medications. Follow up with primary care provider and/or medical subspecialist following discharge as well. Patient not allowed to drive self today or within 24 hours of surgery. Impression/Plan 1. Oxycodone every 4-6 hours as needed for pain 2. Take Colace twice daily and MiraLAX daily as per above while taking narcotics and if no bowel function 3. Avoid nonsteroidals and continue with acetaminophen 650 mg every 6 hours not to exceed 4 g daily 4. Patient to also follow-up in surgery clinic for staple removal. 5. Patient to call or return to the hospital through ER for fevers, nausea, vomiting, abdominal pain or any other worrisome symptoms or concerns. 6. Patient not to return to any work capacity until seen in clinic. Discharge with Jacques drain in place please educate on management. Record output daily. No Smoking: If you smoke, Please STOP! Call for help. Follow-up with: Darion Rivera DO [Primary Care Provider] - Tam Harrington MD [Provider Admit Priv/Credential] - 1-2 Days (Follow up for drain removal on )
--- NOTE | 2020-11-01 17:29 | DISCHARGE SUMMARY ---
"Discharge Summary Admit Date: 10/29/20 Discharge Date: 11/01/20 Primary Care Provider: Len Code Status: Attempt Resuscitation Condition at Discharge: Good Discharge Disposition: 01 Home, Self Care - DIAGNOSES Admission Diagnoses: 1. Obesity 2. History of multiple abdominal interventions 3. History of metastatic carcinoid 4. History of laparoscopic gastric band 5. Symptomatic large incisional supraumbilical hernia 6. Medical comorbid states Discharge Diagnoses with Status of Each Condition: 1. Obesity - Stable 2. History of multiple abdominal interventions - Stable/Addressed 3. History of metastatic carcinoid - No gross evidence of recurrence 4. History of laparoscopic gastric band - Removed this admission 5. Symptomatic large incisional supraumbilical hernia - Repaired this admission 6. Medical comorbid states - STABLE 7. Postoperative ileus - RESOLVED 8. Status post complex laparoscopic intervention - TOLERATED/COMPLETED 9. Postoperative pain - RESOLVED 10. Dense abdominal adhesions - ADDRESSED 11 - Electrolyte abnormalities addressed - HPI History of Present Illness: Please see EMR. 65-year-old female with history of metastatic carcinoid and remote laparoscopic gastric band who presents for midline incisional hernia, explantation of laparoscopic band, and hernia repair. She has undergone laparotomy with debulking as well as HIPEC. She underwent cardiology preoperative work-up and clearance. She presents today for elective repair and lap gastric band/port explantation. - CONSULTS | PROCEDURES Consultations: NONE Procedures: Pre-Op Diagnosis: Hx of laparotomy; Hx of incisional hernia; Hx of lap gastric band Procedure Performed: 1. Diagnostic laparoscopy 2. Laparoscopic adhesiolysis, extensive 3. Laparoscopic assisted laparoscopic gastric band explantation 4. Complex laparoscopic assisted ventral hernia repair 5. Scar revision 6. Transversus abdominis plane block 7. Extensive open adhesiolysis through mini laparotomy 8. Intraperitoneal onlay mesh 9. Cautery of hepatic adhesions Post Op Diagnosis: SAME; extensive adhesions (Hx of HIPEC); extensive gastric adhesions Patient underwent above listed procedure without any complication. Patient underwent operative intervention as listed in the electronic medical record. Tolerated procedure well for which there was no complication. Patient suffered ileus for which resumption of bowel function was necessary. Modification of pain management was indicated. Electrolytes were replaced. It was not surprising that the patient developed ileus secondary to the extent and degree of adhesiolysis Postoperatively the patient was managed for postoperative analgesia and resumption of bowel function. Patient had successfully passed trial of void with discontinuation of [place]. Ultimately tolerated oral intake without any complication. Denied nausea denied vomiting. Was advanced for diet without any complication. Was counseled that given evidence of umbilical hernia which was repaired at the time of the patient's operative intervention that she should avoid any heavy lifting pushing or pulling. Patient was maintained on a bowel regimen. Patient was tolerating oral analgesia, p.o. nutrition with soft diet, voiding spontaneously, with Delayed resumption of bowel function. Afebrile hemod ynamically acceptable. Electrolytes repleted throughout and blood counts as a relates to risks of anemia in the perioperative setting and leukocytosis as an inflammatory marker were all stable without any concerns. Discharge instructions given. Analgesia with oxycodone provided at time of discharge. Patient plan for follow-up and will be notified of pathology once returned. Patient was discharged with drain care and would present to clinic next week to have it removed. - HOSPITAL COURSE Hospital Course: Pre-Op Diagnosis: Hx of laparotomy; Hx of incisional hernia; Hx of lap gastric band Procedure Performed: 1. Diagnostic laparoscopy 2. Laparoscopic adhesiolysis, extensive 3. Laparoscopic assisted laparoscopic gastric band explantation 4. Complex laparoscopic assisted ventral hernia repair 5. Scar revision 6. Transversus abdominis plane block 7. Extensive open adhesiolysis through mini laparotomy 8. Intraperitoneal onlay mesh 9. Cautery of hepatic adhesions Post Op Diagnosis: SAME; extensive adhesions (Hx of HIPEC); extensive gastric adhesions - ALLERGIES Allergies/Adverse Reactions: Allergies Allergy/AdvReac Type Severity Reaction Status Date / Time metformin [From Glucophage] AdvReac Nausea Verified 05/18/20 10:10 - MEDICATIONS Home Medications: Ambulatory Orders Medication Instructions Recorded Confirmed Octreotide Acetate 100 mcg IJ ONCE 10/21/20 10/29/20 Acetaminophen [Tylenol] 1,000 mg PO Q6H tablet 11/01/20 Docusate Sodium 100Mg Capsule 100 mg PO BID 11/01/20 [Colace 100Mg Capsule] Pantoprazole [Protonix] 40 mg PO QDAC #30 tablet 11/01/20 methocarbamoL [Robaxin] 500 mg PO Q6HR PRN #50 tablet 11/01/20 oxyCODONE [Roxicodone] 5 mg PO Q4HR PRN #30 tablet 11/01/20 polyethylene glycoL 3350 [Miralax] 17 gm PO BID packet 11/01/20 - PHYSICAL EXAM AT DISCHARGE Physical Exam Other/Comments: General Appearance: positive: No acute distress Eyes Bilateral: positive: Normal inspection ENT: positive: ENT inspection nml Neck: positive: Nml inspection Respiratory: positive: Chest non-tender, No respiratory distress, Breath sounds nml. negative: Wheezes, Rales, Rhonchi Cardiovascular: positive: Regular rate & rhythm Abdomen: positive: No distention, Other. negative: Guarding, Rebound Extremities: positive: Non-tender, Full ROM, Nml appearance Neurologic/Psychiatric: positive: Oriented x3, CN's nml (2-12) Abdominal Exam: Inspection - Erythema none; Scars trocars well healed Auscultation -normoactive bowel sounds Palpation - Hernias none; Fluctuance none; Induration none; Scar N/A All Dermabond intact over incisions which were clean dry - LABS Result Diagrams: 11/01/20 06:52 11/01/20 06:52 - SEPSIS Current Stage of Sepsis: Septic shock - FOLLOW UP Follow Up: Discharge instructions 1. Narcotic every 4-6 hours as needed for pain 2. Take Colace twice daily and MiraLAX daily as per above while taking narcotics and if no bowel function 3. Avoid nonsteroidals and continue with acetaminophen 650 mg every 6 hours not to exceed 4 g daily 4. Patient to return to clinic for wound check in 1 to 2 weeks. 5. Patient to call or return to the hospital through ER for fevers, nausea, vomiting, abdominal pain or any other worrisome symptoms or concerns. 6. Patient not to return to any work capacity until seen in clinic. 7. No heavy lifting, pushing, or pulling. Stairs are allowed, no strenuous/exertional activities. 5-10lbs weight carrying limit (i.e. gallon of milk) 8. Call or proceed to clinic/ER for fevers, severe pain, nausea, vomiting, inability to pass flatus/stool, bleeding, wound redness/discharge, weakness, excessively loose stool/diarrhea, or for any other reasonably worrisome symptom or concern. 9. Soft diet, no raw vegetables, avoid high fiber foods. 10. No driving while taking narcotic pain medications. 11. Patient not allowed to drive self today or within 24 hours of surgery. 12. Patient to proceed with abdominal binder and avoid heavy lifting pushing or pulling which was read iterated multiply 13. The patient initially to proceed with a modified bariatric diet with removal of laparoscopic gastric band as her stomach returns to normal caliber - TIME SPENT Time Spent in Discharge (Minutes): 90"
[2020-11-01 18:22] VITALS: BP 144/84
== END 2020-11-01 18:10 | disposition home or self-care (01) | DRG 327 ==
LOC: SDS 07:55 → MS2 15:06 → SDS 10-30 15:18
PROVIDERS: ADMIT Surgery; ATTEND Surgery
PROC: 0DP60CZ Removal of Extraluminal Device from Stomach, Open Approach (ICD-10-PCS; 2020-10-29)
PROC: 0WUF4JZ Supplement Abdominal Wall with Synthetic Substitute, Percutaneous Endoscopic Approach (ICD-10-PCS; 2020-10-29)
PROC: 0HB7XZZ Excision of Abdomen Skin, External Approach (ICD-10-PCS; principal; 2020-10-29 09:15)
DX: K43.2 Incisional hernia without obstruction or gangrene (principal); K66.0 Peritoneal adhesions (postprocedural) (postinfection); K56.7 Ileus, unspecified; D23.5 Other benign neoplasm of skin of trunk; Z98.84 Bariatric surgery status; Z92.21 Personal history of antineoplastic chemotherapy; E66.9 Obesity, unspecified; G89.18 Other acute postprocedural pain; Z68.35 Body mass index [BMI] 35.0-35.9, adult; C7A.8 Other malignant neuroendocrine tumors; Z85.060 Personal history of malignant carcinoid tumor of small intestine
CPT/HCPCS: 11406; 36415; 43774; 49654; 80053; 85025; 88300; 88305; 88341; 88342; 88360; A9270; J0131; J0690; J1170; J2765; J7120

== ENCOUNTER 2021-08-26 08:19 | Outpatient (CLI) | payer MEDICARE, OTHER ==
[2021-08-26 09:24] LABS: THYROID STIMULATING HORMONE 2.43 uIU/mL (0.34-5.60)
[2021-08-26 12:10] LABS: ESTIMATED AVERAGE GLUCOSE 134 mg/dL (70-100); HEMOGLOBIN A1c% 6.3 % (4.27-6.07)
== END 2021-08-26 08:20 | disposition home or self-care (01) ==
LOC: LAB 08:19
PROVIDERS: ATTEND Physician Assistant
DX: E55.9 Vitamin D deficiency, unspecified (principal); Z13.220 Encounter for screening for lipoid disorders; R73.9 Hyperglycemia, unspecified; R68.82 Decreased libido; R53.83 Other fatigue
CPT/HCPCS: 36415; 80061; 82306; 83036; 83721; 84403; 84443

== ENCOUNTER 2021-10-31 08:53 | Outpatient (CLI) | payer MEDICARE, OTHER ==
--- NOTE | 2021-10-31 13:32 | XRAY Report ---
PROCEDURE: Hips 2V BILAT INDICATIONS: HIP PAIN L TECHNIQUE: 2 views of the hip were acquired. COMPARISON: None FINDINGS: Bones: No fractures or dislocations. No suspicious bony lesions. The visualized pelvic ring appear s intact. Mild periarticular osteophyte formation at the bilateral hip joints. Soft tissues: No suspicious soft tissue calcifications or masses. IMPRESSION: Bilateral hip osteoarthritis. No acute fracture. No osseous lesion. If symptoms and/or clinical suspi cion for pathology continue, further assessment with repeat plain films, or advanced imaging (e.g., C T, MRI, or bone scan) is recommended for further assessment. Reviewed by: Jaime Deleon MD on 10/31/2021 1:31 PM PDT Approved by: Jaime Deleon MD on 10/31/2021 1:31 PM PDT Station ID: [id number]
== END 2021-10-31 08:54 | disposition home or self-care (01) ==
LOC: DI 08:53
PROVIDERS: ATTEND Physician Assistant
DX: M16.0 Bilateral primary osteoarthritis of hip (principal)

== ENCOUNTER 2022-02-24 08:00 | Outpatient (CLI) | payer MEDICARE, OTHER ==
[2022-02-24 18:20] LABS: BILIRUBIN,URINE NEGATIVE (NEGATIVE); GLUCOSE, URINE (UA) >=1000 mg/dL (NEGATIVE); KETONES,URINE (UA) TRACE mg/dL (NEGATIVE); LEUKOCYTE ESTERASE, URINE NEGATIVE (NEGATIVE); NITRITE,URINE NEGATIVE (NEGATIVE); OCCULT BLOOD,URINE NEGATIVE (NEGATIVE); PH,URINE 5.5 PH (5.0-7.5); PROTEIN,URINE NEGATIVE (NEGATIVE); UROBILINOGEN,URINE 0.2 (NORMAL) E.U./dL (NORMAL)
[2022-02-24 18:29] LABS: AMORPHOUS SEDIMENT,UR Marked /LPF; BACTERIA,URINE Few /HPF (None Seen); CLARITY,URINE CLOUDY (CLEAR); RBC,URINE 0-5 /HPF (0-5); SQUAMOUS EPITHELIAL CELL,UR FEW Squamous (<= Few)
== END 2022-02-24 23:59 | disposition home or self-care (01) ==
LOC: LAB.WCP 08:00
PROVIDERS: ATTEND Physician Assistant
DX: R30.0 Dysuria (principal)
CPT/HCPCS: 81001; 87086

== ENCOUNTER 2022-02-27 08:14 | Outpatient (CLI) | payer MEDICARE, OTHER ==
[2022-02-27 08:48] LABS: BASOPHILS % (AUTO) 0.2 %; EOSINOPHILS # (AUTO) 0.1 10^3/uL (0.0-0.7); EOSINOPHILS % (AUTO) 1.4 %; HGB - HEMOGLOBIN 13.4 g/dL (12.0-16.0); LYMPHOCYTES # (AUTO) 0.7 10^3/uL (1.5-3.5); LYMPHOCYTES % (AUTO) 16.4 %; MEAN CORPUSCULAR HEMOGLOBIN 31.3 pg (27.0-31.0); MEAN CORPUSCULAR HGB CONC 32.7 g/dL (32.0-36.0); MEAN CORPUSCULAR VOLUME 95.8 fL (81.0-99.0); MEAN PLATELET VOLUME 9.7 fL (7.9-10.8); MONOCYTES # (AUTO) 0.3 10^3/uL (0.0-1.0); MONOCYTES % (AUTO) 6.4 %; NEUTROPHILS # (AUTO) 3.3 10^3/uL (1.5-6.6); NEUTROPHILS % (AUTO) 75.4 %; PLT - PLATELET COUNT 157 10^3/uL (130-450); RED BLOOD COUNT 4.28 10^6/uL (4.20-5.40); RED CELL DISTRIBUTION WIDTH 13.3 % (12.0-15.0); WHITE BLOOD COUNT 4.4 x10^3/uL (4.8-10.8)
[2022-02-27 08:54] LABS: BILIRUBIN,URINE NEGATIVE (NEGATIVE); GLUCOSE, URINE (UA) NEGATIVE (NEGATIVE); KETONES,URINE (UA) NEGATIVE (NEGATIVE); LEUKOCYTE ESTERASE, URINE LARGE (NEGATIVE); NITRITE,URINE POSITIVE (NEGATIVE); OCCULT BLOOD,URINE TRACE-INTA (NEGATIVE); PROTEIN,URINE NEGATIVE (NEGATIVE); UROBILINOGEN,URINE 0.2 (NORMAL) E.U./dL (NORMAL)
[2022-02-27 08:58] LABS: CLARITY,URINE CLOUDY (CLEAR)
[2022-02-27 09:07] LABS: ALBUMIN 4.2 g/dL (3.2-5.5); ALBUMIN/GLOBULIN RATIO 1.7 (1.0-2.2); ALKALINE PHOSPHATASE 93 IU/L (42-121); ALT ALANINE AMINOTRANSFERASE 46 IU/L (10-60); AST ASPARTATE AMINOTRANSFERASE 45 IU/L (10-42); BUN - BLOOD UREA NITROGEN 16 mg/dL (6-20); CALCIUM 8.9 mg/dL (8.5-10.3); CARBON DIOXIDE - CO2 26 mmol/L (21-32); CHLORIDE 105 mmol/L (101-111); CHOL/HDL RATIO 2.8 (<4.4); CHOLESTEROL 181 mg/dL; CREATININE 0.7 mg/dL (0.4-1.0); GFR - MDRD 83 (>89); GLUCOSE 155 mg/dL (70-100); HDL CHOLESTEROL 64 mg/dL; LDL CHOLESTEROL,CALCULATED 101 mg/dL; LDL/HDL RATIO 1.6 (<4.4); POTASSIUM 3.8 mmol/L (3.5-5.0); SODIUM 140 mmol/L (135-145); TOTAL PROTEIN 6.7 g/dL (6.7-8.2); TRIGLYCERIDES 81 mg/dL; VLDL CHOLESTEROL 16 mg/dL
[2022-02-27 09:10] LABS: BACTERIA,URINE Moderate /HPF (None Seen); RBC,URINE 0-5 /HPF (0-5); SQUAMOUS EPITHELIAL CELL,UR MANY Squamous (<= Few); WBC,URINE >25 /HPF (0-5)
[2022-02-27 09:11] LABS: CREATININE,URINE 115.7 mg/dL; MICROALBUM/CREATININE RATIO,UR 28.5 ug/mg (<30.0); MICROALBUMIN,URINE 3.3 mg/dL (0-300.0)
[2022-02-27 10:26] LABS: ESTIMATED AVERAGE GLUCOSE 163 mg/dL (70-100); HEMOGLOBIN A1c% 7.3 % (4.27-6.07)
== END 2022-02-27 08:15 | disposition home or self-care (01) ==
LOC: LAB 08:14
PROVIDERS: ATTEND Physician Assistant
DX: I10 Essential (primary) hypertension (principal); R82.4 Acetonuria; R30.0 Dysuria; R73.03 Prediabetes; Z13.220 Encounter for screening for lipoid disorders
CPT/HCPCS: 36415; 80053; 80061; 81001; 82043; 82570; 83036; 83721; 85025; 87086

== ENCOUNTER 2022-03-22 12:30 | Outpatient (CLI) | payer MEDICARE, OTHER | END 2022-03-22 12:31 | disposition home or self-care (01) | LOC: DI 12:30 | PROVIDERS: ATTEND Physician Assistant | DX: I77.810 Thoracic aortic ectasia (principal); I07.1 Rheumatic tricuspid insufficiency | CPT/HCPCS: 93306 ==

== ENCOUNTER 2022-05-04 08:10 | Outpatient (CLI) | payer MEDICARE, OTHER ==
[2022-05-04 08:59] LABS: CALCIUM 8.6 mg/dL (8.5-10.3); CREATININE 0.8 mg/dL (0.4-1.0)
[2022-05-04 09:08] LABS: ESTIMATED AVERAGE GLUCOSE 146 mg/dL (70-100); HEMOGLOBIN A1c% 6.7 % (4.27-6.07)
== END 2022-05-04 08:11 | disposition home or self-care (01) ==
LOC: LAB 08:10
PROVIDERS: ATTEND Physician Assistant
DX: E11.9 Type 2 diabetes mellitus without complications (principal)
CPT/HCPCS: 36415; 80048; 83036

== ENCOUNTER 2022-08-01 10:04 | Outpatient (CLI) | payer MEDICARE, OTHER ==
[2022-08-01 11:41] LABS: ESTIMATED AVERAGE GLUCOSE 117 mg/dL (70-100); HEMOGLOBIN A1c% 5.7 % (4.27-6.07)
== END 2022-08-01 10:05 | disposition home or self-care (01) ==
LOC: LAB 10:04
PROVIDERS: ATTEND Physician Assistant
DX: E11.9 Type 2 diabetes mellitus without complications (principal)
CPT/HCPCS: 36415; 83036

== ENCOUNTER 2023-02-19 10:03 | Outpatient (CLI) | payer MEDICARE, OTHER ==
[2023-02-19 12:13] LABS: BASOPHILS % (AUTO) 0.5 %; EOSINOPHILS # (AUTO) 0.1 10^3/uL (0.0-0.7); EOSINOPHILS % (AUTO) 1.6 %; HCT - HEMATOCRIT 39.9 % (37.0-47.0); HGB - HEMOGLOBIN 13.1 g/dL (12.0-16.0); LYMPHOCYTES # (AUTO) 0.8 10^3/uL (1.5-3.5); LYMPHOCYTES % (AUTO) 19.8 %; MEAN CORPUSCULAR HGB CONC 32.8 g/dL (32.0-36.0); MEAN CORPUSCULAR VOLUME 97.3 fL (81.0-99.0); MEAN PLATELET VOLUME 10.4 fL (7.9-10.8); MONOCYTES # (AUTO) 0.3 10^3/uL (0.0-1.0); MONOCYTES % (AUTO) 7.3 %; NEUTROPHILS % (AUTO) 70.6 %; PLT - PLATELET COUNT 157 10^3/uL (130-450); RED CELL DISTRIBUTION WIDTH 13.7 % (12.0-15.0); WHITE BLOOD COUNT 4.3 x10^3/uL (4.8-10.8)
[2023-02-19 13:05] LABS: ALBUMIN 4.1 g/dL (3.2-5.5); ALBUMIN/GLOBULIN RATIO 2.1 (1.0-2.2); ALKALINE PHOSPHATASE 96 IU/L (42-121); ALT ALANINE AMINOTRANSFERASE 20 IU/L (10-60); AST ASPARTATE AMINOTRANSFERASE 19 IU/L (10-42); BILIRUBIN,TOTAL 0.7 mg/dL (0.2-1.0); BUN - BLOOD UREA NITROGEN 17 mg/dL (6-20); CARBON DIOXIDE - CO2 31 mmol/L (21-32); CHLORIDE 107 mmol/L (101-111); CHOL/HDL RATIO 2.8 (<4.4); CHOLESTEROL 168 mg/dL; CREATININE 0.7 mg/dL (0.6-1.3); GFR - MDRD 83 (>89); GLUCOSE 125 mg/dL (74-104); HDL CHOLESTEROL 61 mg/dL; LDL CHOLESTEROL,CALCULATED 92 mg/dL; LDL/HDL RATIO 1.5 (<4.4); POTASSIUM 3.9 mmol/L (3.5-4.5); SODIUM 142 mmol/L (135-145); TOTAL PROTEIN 6.1 g/dL (6.4-8.9); TRIGLYCERIDES 73 mg/dL (48-352); VLDL CHOLESTEROL 15 mg/dL
[2023-02-19 13:12] LABS: ESTIMATED AVERAGE GLUCOSE 114 mg/dL (70-100); HEMOGLOBIN A1c% 5.6 % (4.27-6.07)
== END 2023-02-19 10:04 | disposition home or self-care (01) ==
LOC: LAB.N 10:03
PROVIDERS: ATTEND Physician Assistant
DX: E11.9 Type 2 diabetes mellitus without complications (principal)
CPT/HCPCS: 36415; 80053; 80061; 83036; 83721; 85025

== ENCOUNTER 2023-04-30 04:05 | Emergency (ER) | payer MEDICARE, OTHER ==
--- NOTE | 2023-04-30 04:25 | ED Physician Documentation ---
PD HPI URI - Stated complaint Stated Complaint: SOA - Chief complaint Chief Complaint: Resp - History obtained from History obtained from: Patient - History of Present Illness Timing - onset: How many days ago (8-9) Timing duration: Days (8-9) Timing details: Gradual onset, Still present (worse coughing with now sputum production and having sternal /anterior pains with coughing.) Associated symptoms: Nasal congestion, Rhinorrhea, Productive cough (initialoy dry, but has become productive.), Chest pain (the past 1-2 days with coughing). No: Fever, Sore throat Contributing factors: COPD / asthma. No: Sick contact, Immunocompromised Review of Systems Constitutional: reports: Myalgias, Fatigue. denies: Fever Nose: reports: Congestion Throat: denies: Sore throat Cardiac: reports: Chest pain / pressure. 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, Oophrectomy HEENT: Tonsil/Adenoidectomy - Present Medications Home Medications: Ambulatory Orders Medication Instructions Recorded Confirmed Octreotide Acetate 100 mcg IJ ONCE 10/21/20 04/30/23 Losartan [Cozaar] 50 mg PO DAILY 01/26/22 04/30/23 Albuterol Sulf [Ventolin Hfa 2 - 3 puffs INH Q4HR PRN #1 each 04/30/23 Inhaler] Amox/Clav 875/125 [Augmentin] 1 each PO Q12H #10 tablet 04/30/23 Benzonatate [Tessalon] 100 mg PO TID PRN #20 cap 04/30/23 Cholecalciferol [Vitamin D3] 5,000 unit PO DAILY 04/30/23 04/30/23 Semaglutide [Rybelsus] 7 mg PO DAILY 04/30/23 04/30/23 dexAMETHasone [Decadron] 4 mg PO DAILY #5 tablet 04/30/23 - Allergies Allergies/Adverse Reactions: Allergies Allergy/AdvReac Type Severity Reaction Status Date / Time metformin [From Glucophage] AdvReac Nausea Verified 04/30/23 04:18 - Social History Does the pt smoke?: No Smoking Status: Never smoker Does the pt drink ETOH?: Yes Does the pt have substance abuse?: No - Immunizations Immunizations are current?: Yes - POLST Patient has POLST: No PD ED PE NORMAL - Vitals Vital signs reviewed: Yes - General General: Alert and oriented X 3, No acute distress, Well developed/nourished - Neck Neck: Supple, no meningeal sign, No adenopathy - Cardiac Cardiac: RRR, No murmur - Respiratory Respiratory: No: Clear bilaterally (wheezing noted on expiration. No coarse sounds. ) - Abdomen Abdomen: Soft, Non tender - Derm Derm: Normal color, Warm and dry - Extremities Extremities: No edema, No calf tenderness / cord - Neuro Neuro: Alert and oriented X 3, No motor deficit, Normal speech Results - Vitals Vitals: Oxygen O2 Source Room air - Rads (name of study) chest xray Relevant Findings:: Prelim report reviewed (blurring of left costophrenic angle. ), EMP independent interpretation of test (some consolidation lowerright to my reading. ) PD Medical Decision Making - ED course Complexity details: reviewed results (chest xray with mild findings suggesting early infiltrates. ), considered differential (URI and brhonchial symptoms for 8-9 days. Was dry now procutvie. Concern for developing bacterial overlay. History of some lung disease. Can add steroids and antibiotic. Continue inhalers. ), d/w patient Departure - Departure Disposition: 01 Home, Self Care Clinical Impression: Acute lower respiratory tract infection Condition: Stable Record reviewed to determine appropriate education?: Yes Instructions: ED Upper Resp Infec Abx Tx Follow-Up: Marcelina Mendoza PA-C [Primary Care Provider] - Prescriptions: Albuterol Sulf [Ventolin Hfa Inhaler] 2 - 3 puffs INH Q4HR PRN #1 each PRN Reason: Shortness Of Air/Wheezing Amox/Clav 875/125 [Augmentin] 1 each PO Q12H #10 tablet dexAMETHasone [Decadron] 4 mg PO DAILY #5 tablet Benzonatate [Tessalon] 100 mg PO TID PRN #20 cap PRN Reason: Cough Comments: Your chest x-ray is essentially clear. There is perhaps a faint little area in the lower right that may be an early pneumonia or just some congestion. No significant pneumonia appearance. Given your duration of symptoms and now increasing cough and sputum it does sound possibly bacterial bronchitis developing on top of a previous "chest cold". Alternatively he may have a second virus starting now that is compounding your initial cough. I would treat along the lines of bacterial bronchitis on top of the initial viral illness and use a combination of albuterol inhaler 2 to 3 puffs 4 times daily for the next several days to week in combination with Augmentin antibiotic and Decadron steroid for inflammation of the airways. This should help the coughing and wheezing and improve your breathing. In addition you can use benzonatate/Tessalon to help with the cough 2. This is a combination we gave you here that did seem to help. I sent your prescriptions to [facility] pharmacy. The only main difference with presuming some bacterial component is the addition of the antibiotic. The other medications would help regardless of viral or bacterial so useful in both regards. I would anticipate improvement over the next several days and resolved over 3 to 5 days. Return if worsening and follow-up with your primary if not improved in a good timeframe. Forms: PCP List Discharge Date/Time: 04/30/23 05:39
[2023-04-30] MEDS ORDERED: AMOX/CLAV 875 MG/125 MG TABLET PO STA (04:39)
[2023-04-30] MEDS ORDERED: BENZONATATE 100 MG CAPSULE PO STA (04:39)
[2023-04-30] MEDS ORDERED: dexAMETHasone 4 MG TABLET PO STA (04:39)
[2023-04-30] MEDS ORDERED: ALBUTEROL 1 PUFF INH STA (04:39)
[2023-04-30 05:40] VITALS: BP 159/78; O2SAT 100
--- NOTE | 2023-04-30 08:16 | XRAY Report ---
PROCEDURE: Chest 1V INDICATIONS: cough/dyspnea TECHNIQUE: One view of the chest was acquired. COMPARISON: CT chest 12/06/2018 FINDINGS: Surgical changes and devices: None. Lungs and pleura: There is blunting of left costophrenic angle. Mediastinum: Mediastinal contours appear normal. Heart size is stable. Bones and chest wall: No suspicious bony lesions. Overlying soft tissues appear unremarkable. IMPRESSION: Left costophrenic angle The above findings are concordant with preliminary report. Reviewed by: Ester Ely MD on 04/30/2023 8:15 AM PST Approved by: Ester Ely MD on 04/30/2023 8:15 AM PST Station ID: [id number]
== END 2023-04-30 05:39 | disposition home or self-care (01) ==
LOC: ED 04:05
DX: J22 Unspecified acute lower respiratory infection (principal)
CPT/HCPCS: 71045; 94640; 94664; 99284; A9270; J8540

== ENCOUNTER 2023-08-15 10:00 | Outpatient (CLI) | payer MEDICARE, OTHER ==
[2023-08-15 11:41] LABS: BASOPHILS % (AUTO) 0.5 %; EOSINOPHILS # (AUTO) 0.1 10^3/uL (0.0-0.7); EOSINOPHILS % (AUTO) 2.1 %; HCT - HEMATOCRIT 43.5 % (37.0-47.0); HGB - HEMOGLOBIN 13.8 g/dL (12.0-16.0); LYMPHOCYTES # (AUTO) 0.8 10^3/uL (1.5-3.5); MEAN CORPUSCULAR HEMOGLOBIN 31.1 pg (27.0-31.0); MEAN CORPUSCULAR HGB CONC 31.7 g/dL (32.0-36.0); MEAN PLATELET VOLUME 10.5 fL (7.9-10.8); MONOCYTES # (AUTO) 0.3 10^3/uL (0.0-1.0); MONOCYTES % (AUTO) 7.1 %; NEUTROPHILS % (AUTO) 71.1 %; PLT - PLATELET COUNT 168 10^3/uL (130-450); RED BLOOD COUNT 4.44 10^6/uL (4.20-5.40); WHITE BLOOD COUNT 4.2 x10^3/uL (4.8-10.8)
[2023-08-15 12:10] LABS: ESTIMATED AVERAGE GLUCOSE 120 mg/dL (70-100); HEMOGLOBIN A1c% 5.8 % (4.27-6.07)
[2023-08-15 12:17] LABS: ALBUMIN 4.4 g/dL (3.2-5.5); ALBUMIN/GLOBULIN RATIO 2.2 (1.0-2.2); BILIRUBIN,TOTAL 1.2 mg/dL (0.2-1.0); CALCIUM 9.8 mg/dL (8.5-10.3); CREATININE 0.8 mg/dL (0.6-1.3); TOTAL PROTEIN 6.4 g/dL (6.4-8.9)
[2023-08-15 12:26] LABS: CREATININE,URINE 212.6 mg/dL; MICROALBUM/CREATININE RATIO,UR 11.3 ug/mg (<30.0); MICROALBUMIN,URINE 2.4 mg/dL
== END 2023-08-15 10:01 | disposition home or self-care (01) ==
LOC: LAB.N 10:00
PROVIDERS: ATTEND Physician Assistant
DX: E11.9 Type 2 diabetes mellitus without complications (principal)
CPT/HCPCS: 36415; 80053; 82043; 82570; 83036; 85025

== ENCOUNTER 2023-10-17 08:49 | Outpatient (CLI) | payer MEDICARE, OTHER | END 2023-10-17 08:50 | disposition home or self-care (01) | LOC: DI 08:49 | PROVIDERS: ATTEND Physician Assistant | DX: I35.1 Nonrheumatic aortic (valve) insufficiency (principal); I77.810 Thoracic aortic ectasia | CPT/HCPCS: 93307 ==

== ENCOUNTER 2024-01-14 10:30 | Outpatient (CLI) | payer MEDICARE, OTHER ==
[2024-01-14 18:04] LABS: BASOPHILS % (AUTO) 0.5 %; EOSINOPHILS # (AUTO) 0.1 10^3/uL (0.0-0.7); EOSINOPHILS % (AUTO) 2.7 %; HCT - HEMATOCRIT 41.5 % (37.0-47.0); HGB - HEMOGLOBIN 13.4 g/dL (12.0-16.0); LYMPHOCYTES # (AUTO) 0.8 10^3/uL (1.5-3.5); LYMPHOCYTES % (AUTO) 20.2 %; MEAN CORPUSCULAR HEMOGLOBIN 31.5 pg (27.0-31.0); MEAN CORPUSCULAR HGB CONC 32.3 g/dL (32.0-36.0); MEAN CORPUSCULAR VOLUME 97.4 fL (81.0-99.0); MEAN PLATELET VOLUME 10.4 fL (7.9-10.8); MONOCYTES # (AUTO) 0.3 10^3/uL (0.0-1.0); MONOCYTES % (AUTO) 8.6 %; NEUTROPHILS # (AUTO) 2.5 10^3/uL (1.5-6.6); NEUTROPHILS % (AUTO) 67.7 %; PLT - PLATELET COUNT 137 10^3/uL (130-450); RED BLOOD COUNT 4.26 10^6/uL (4.20-5.40); RED CELL DISTRIBUTION WIDTH 13.6 % (12.0-15.0); WHITE BLOOD COUNT 3.7 x10^3/uL (4.8-10.8)
[2024-01-14 18:18] LABS: CHOL/HDL RATIO 2.4 (<4.4); CHOLESTEROL 166 mg/dL; HDL CHOLESTEROL 68 mg/dL; LDL CHOLESTEROL,CALCULATED 83 mg/dL; LDL/HDL RATIO 1.2 (<4.4); TRIGLYCERIDES 77 mg/dL; VLDL CHOLESTEROL 15 mg/dL
[2024-01-14 18:20] LABS: ALBUMIN 4.3 g/dL (3.2-5.5); BILIRUBIN,TOTAL 0.9 mg/dL (0.2-1.0); CALCIUM 9.5 mg/dL (8.5-10.3); CREATININE 0.8 mg/dL (0.6-1.3); POTASSIUM 4.1 mmol/L (3.5-4.5); TOTAL PROTEIN 6.5 g/dL (6.4-8.9)
[2024-01-14 21:21] LABS: ESTIMATED AVERAGE GLUCOSE 108 mg/dL (70-100); HEMOGLOBIN A1c% 5.4 % (4.27-6.07)
== END 2024-01-14 10:31 | disposition home or self-care (01) ==
LOC: LAB.N 10:30
PROVIDERS: ATTEND Specialist
DX: C7A.8 Other malignant neuroendocrine tumors (principal); E11.9 Type 2 diabetes mellitus without complications
CPT/HCPCS: 36415; 80053; 80061; 83036; 83721; 85025; 86316